=== PATIENT | male | born 1985 | race African-American/Black ===

== ENCOUNTER 2017-04-27 22:04 | Emergency (ER) | payer OTHER, SELFPAY ==
[2017-04-27] MEDS ORDERED: Adacel (T-DAP) 0.5 ML VIAL ONE (22:21)
== END 2017-04-27 22:42 | disposition home or self-care (01) ==
LOC: NAV ERS 22:04
DX: S91.332A Puncture wound without foreign body, left foot, initial encounter (principal); W45.0XXA Nail entering through skin, initial encounter
CPT/HCPCS: 90471; 90715

== ENCOUNTER 2024-06-13 14:19 | Outpatient (CLI) | payer OTHER | END 2024-06-13 14:20 | disposition home or self-care (01) | LOC: NAV RAD 14:19 | PROVIDERS: ATTEND Family Medicine | DX: M51.16 Intervertebral disc disorders with radiculopathy, lumbar region (principal); M48.061 Spinal stenosis, lumbar region without neurogenic claudication; Z98.1 Arthrodesis status | CPT/HCPCS: 72100 ==